=== PATIENT | male | born 1965 | race Caucasian/White ===

== ENCOUNTER 2022-06-09 11:58 | Observation (INO) | payer BC ==
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
[2022-06-09 12:25] LABS: Absolute Lymphocytes (CBC) 0.7 K/uL (0.7-4.9); Hematocrit 39.2 % (39.6-49.0); Lymphocytes % 13.1 % (15.3-44.8); MPV 7.1 fL (7.6-11.3)
[2022-06-09] MEDS ORDERED: MIDAZOLAM HCL 2 MG/2 ML INJ ONE (12:28)
--- NOTE | 2022-06-09 12:41 | RAD REPORT ---
EXAM DESCRIPTION: CT - Head Brain Wo Cont - 06/09/2022 12:28 pm CLINICAL HISTORY: Seizure COMPARISON: None. TECHNIQUE: Computed axial tomography of the head was obtained. IV contrast was not requested. All CT scans are performed using dose optimization technique as appropriate and may include automated exposure control or mA/KV adjustment according to patient size. FINDINGS: An intracranial bleed is not seen . The ventricles are normal in caliber. No significant hypodense areas within the brain visualized No extra-axial fluid collection is noted. Fluid within the sinuses/ mastoids is not seen. IMPRESSION: No acute intracranial abnormality is seen. If patient's symptoms persist MRI of the bra in would be recommended.
[2022-06-09 13:06] LABS: Urine Blood Trace-intact (Negative); Urine Glucose Negative (Negative); Urine Protein 1+ (Negative); Urine Specific Gravity 1.025 (1.005-1.030)
[2022-06-09 13:08] LABS: ALT/SGPT 51 U/L (12-78); AST/SGOT 90 U/L (15-37); Albumin 3.4 g/dL (3.4-5.0); Alkaline Phosphatase 75 U/L (45-117); BUN Blood Urea Nitrogen 4 mg/dL (7-18); Bicarbonate 18 mmol/L (21-32); Bilirubin Total 0.3 mg/dL (0.2-1.0); Glomerular Filtration Rate 97 ml/min (=/>90); Glucose Level 123 mg/dL (74-106); Potassium 3.8 mmol/L (3.5-5.1); Protein, Total 6.9 g/dL (6.4-8.2); Sodium Level 137 mmol/L (136-145)
[2022-06-09 13:10] LABS: Protime INR 1.04
[2022-06-09 13:22] LABS: Barbiturates NEGATIVE (NEGATIVE); Benzodiazepines POSITIVE (NEGATIVE); Cocaine NEGATIVE (NEGATIVE); METHAMPHETAM NEGATIVE (NEGATIVE); Methadone NEGATIVE (NEGATIVE); Opiates NEGATIVE (NEGATIVE); Phencyclidine NEGATIVE (NEGATIVE); THC Cannibis NEGATIVE (NEGATIVE)
[2022-06-09 13:48] LABS: Phenytoin (Dilantin) Level 1.1 ug/mL (10.0-20.0)
[2022-06-09 13:49] LABS: Bilirubin Direct < 0.1 mg/dL (0-0.2)
[2022-06-09] MEDS ORDERED: FOSPHENYTOIN PE 500 MG/10 ML VIAL ONE ×2 (14:17→14:18)
[2022-06-09] MEDS ORDERED: NA CHLORIDE 0.9% 0 ML ONE (14:18)
[2022-06-09] MEDS ORDERED: NA CHLORIDE 0.9% 100 ML ONE ×2 (14:19→23:16)
--- NOTE | 2022-06-09 14:19 | ER ---
Nurse's Notes [facility] Name: Devin Arreguin Age: 56 yrs Sex: Male : 1965 Arrival Date: 06/09/2022 Time: 12:01 Bed 14 Private MD: Diagnosis: Alcohol dependence with withdrawal;Other seizures Presentation: 06/09 11:50 Chief complaint: EMS states: Seizure in the back of his truck, Hx of seizures, takes jg9 medication daily, postictal when EMS arrived, seizure was unwitnessed. patient reports he can't remember when the last seizure he had was, patient reports daily drinker (beer) last drink yesterday, patient has obvious shaking/tremors-patient reports that it's normal after a seizure but does seem worse this time. EMS gave 1 L fluid en route. Coronavirus screen: Vaccine status: Patient reports receiving the 2nd dose of the covid vaccine. Ebola Screen: Patient negative for fever greater than or equal to 101.5 degrees Fahrenheit, and additional compatible Ebola Virus Disease symptoms Patient denies exposure to infectious person. Patient denies travel to an Ebola-affected area in the 21 days before illness onset. Initial Sepsis Screen: Does the patient meet any 2 criteria? HR > 90 bpm. Yes No. Patient's initial sepsis screen is negative. Does the patient have a suspected source of infection? No. Patient's initial sepsis screen is negative. Risk Assessment: Do you want to hurt yourself or someone else? Patient reports no desire to harm self or others. Onset of symptoms is unknown. 11:50 Method Of Arrival: EMS: [facility] jg9 11:50 Acuity: CAN 3 jg9 Triage Assessment: 11:50 General: Appears in no apparent distress. Behavior is calm, cooperative. Pain: Denies jg9 pain. Neuro: Reports Seizure activity reported prior to arrival. 12:10 Neuro: [place] Agitation-Sedation Scale (RASS): 0 - Alert and Calm Level of jg9 Consciousness is awake, alert, obeys commands, Oriented to person, place, time, situation. Cardiovascular: Rhythm is sinus tachycardia. Respiratory: No deficits noted. GI: No deficits noted. : No deficits noted. Derm: No deficits noted. Musculoskeletal: tremors. Historical: - Allergies: 12:08 No Known Allergies; jg9 - PMHx: 12:08 Seizure; Atrial fibrillation; Hypertensive disorder; jg9 - Immunization history:: Adult Immunizations Client reports receiving the 2nd dose of the Covid vaccine, Pneumococcal vaccine is not up to date, Flu vaccine is not up to date. - Social history:: Smoking status: Patient reports use of chewing tobacco. Patient uses alcohol, on a daily basis. Screenin:10 Abuse screen: Denies threats or abuse. Denies injuries from another. Nutritional jg9 screening: hx etoh abuse. Tuberculosis screening: No symptoms or risk factors identified. Fall Risk None identified. 12:30 Clinical [place] Withdrawal Assessment for Alcohol, revised (CIWA-Ar): jg9 Nausea/Vomitin - No nausea or vomiting Headache: 0 - Not present Paroxysmal Sweats: 1 - Barely perceptible sweating, palms moist Anxiety: 0 - No anxiety, at ease Agitation: 0 - Normal actiivty Tremor: 4 - Moderate when client's hands extended Auditory Disturbances: 0 - Not present Visual Disturbances: 0 - Not present Tactile Disturbances: 0 - None Orientation and Clouding of Sensorium: 0 - Oriented and can do serial additions Total Score: < 10 Very mild withdrawal. Assessment: 13:00 Reassessment: No changes from previously documented assessment. Patient and/or family jg9 updated on plan of care and expected duration. Pain level reassessed. Patient is alert, oriented x 3, equal unlabored respirations, skin warm/dry/pink. 14:00 Reassessment: Patient appears in no apparent distress at this time. Patient and/or jg9 family updated on plan of care and expected duration. Pain level reassessed. Patient is alert, oriented x 3, equal unlabored respirations, skin warm/dry/pink. 14:30 Reassessment: Patient admits to daily drinking of beer, last drink was yesterday. jg9 15:00 Reassessment: Patient appears in no apparent distress at this time. No changes from jg9 previously documented assessment. Patient and/or family updated on plan of care and expected duration. Pain level reassessed. Patient is alert, oriented x 3, equal unlabored respirations, skin warm/dry/pink. Vital Signs: 11:50 BP 175 / 96; Pulse 12; Resp 19 S; Temp 97.6; Pulse Ox 95% on R/A; Weight 97.07 kg; jg9 Height 5 ft. 11 in. (180.34 cm) (R); Pain 0/10; 13:20 BP 160 / 87; Pulse 118; Resp 67 S; Pulse Ox 24% ; Pain 0/10; jg9 13:30 BP 166 / 92; Pulse 120; Resp 22; Pulse Ox 97% ; jg9 14:00 BP 145 / 96; Pulse 121; Resp 22 S; Pulse Ox 95% on R/A; jg9 15:00 BP 177 / 96; Pulse 107; Resp 20 S; Pulse Ox 97% on R/A; jg9 11:50 Body Mass Index 29.85 (97.07 kg, 180.34 cm) jg9 [place] Coma Score: 11:50 Eye Response: spontaneous(4). Verbal Response: oriented(5). Motor Response: obeys jg9 commands(6). Total: 15. ED Course: 12:00 Inserted saline lock: 20 gauge in right antecubital area, using aseptic technique. jg9 Blood collected. 12:01 Patient arrived in ED. ms3 12:01 López Hardwick DO is Attending Physician. ms3 12:02 Isabella Arroyo, RN is Primary Nurse. jg9 12:08 Triage completed. jg9 12:11 Arm band placed on right wrist. jg9 12:11 Seizure precautions initiated. jg9 12:31 CT Head Brain wo Cont In Process Unspecified. EDMS 13:00 No apparent distress. Resting quietly. Awaiting lab results, Awaiting radiology jg9 results. Awaiting disposition. 14:00 No apparent distress. Resting quietly. Awaiting disposition. jg9 14:18 Manoj Abel MD is Hospitalizing Provider. ms3 16:17 No provider procedures requiring assistance completed. jg9 16:18 Patient admitted, IV remains in place. jg9 19:06 Primary Nurse role handed off by Isablela Arroyo, SHELLEY mw2 06/10 08:09 Isabella Arroyo, RN is Primary Nurse. jg9 Administered Medications: 06/09 12:23 Drug: Midazolam 5 mg Route: IVP; Site: left hand; jg9 13:30 Follow up: Response: No adverse reaction; Anxiety decreased; RASS: Alert and Calm (0) jg9 14:16 Drug: Fosphenytoin 1 grams Route: IVPB; Site: left hand; jg9 14:58 Follow up: IV Status: Completed infusion; IV Intake: 100ml jg9 14:51 Drug: Thiamine 100 mg Route: PO; jg9 15:38 Follow up: Response: No adverse reaction jg9 17:40 Drug: Ativan (LORazepam) 2 mg Route: PO; jg9 19:00 Follow up: Response: No adverse reaction; Anxiety decreased jg9 17:40 Drug: traMADol 100 mg Route: PO; jg9 19:00 Follow up: Response: No adverse reaction; Pain is decreased jg9 Medication: 16:18 VIS not applicable for this client. jg9 Intake: 14:58 IV: 100ml; Total: 100ml. jg9 Outcome: 14:19 Decision to Hospitalize by Provider. ms3 16:18 Admitted to ER Hold. Please see [facility] for further documentation. jg9 16:18 Condition: stable 06/10 08:10 Patient left the ED. jg9 Signatures: Dispatcher [employer] EDMS Antonio Ellison [email or web address] López Hardwick DO DO ms3 Isabella Arroyo, RN RN jg9
--- NOTE | 2022-06-09 14:19 | EDPHYS ---
Physician Documentation [facility] Name: Devin Arreguin Age: 56 yrs Sex: Male : 1965 Arrival Date: 06/09/2022 Time: 12:01 Bed 14 Private MD: ED Physician López Hardwick HPI: 06/09 15:58 This 56 yrs old Male presents to ER via EMS with complaints of Seizure. ms3 15:58 The patient presents after having a single isolated seizure, that lasted an unknown ms3 period of time. Character of seizure(s): Loss of consciousness: the patient experienced loss of consciousness, Motor activity: the motor activity is unknown, Incontinence: none. Seizure onset: just prior to arrival. Context: occurred at work. Seizure Hx: Last seizure: The patient's last seizure several years ago. Associated injury: The patient did not suffer any apparent associated injury. EMS care: none. Current symptoms: Currently, the patient is not experiencing any symptoms. 15:58 Patient states he drinks daily and has decreased his alcohol intake. ms3 Historical: - Allergies: 12:08 No Known Allergies; jg9 - PMHx: 12:08 Seizure; Atrial fibrillation; Hypertensive disorder; jg9 - Immunization history:: Adult Immunizations Client reports receiving the 2nd dose of the Covid vaccine, Pneumococcal vaccine is not up to date, Flu vaccine is not up to date. - Social history:: Smoking status: Patient reports use of chewing tobacco. Patient uses alcohol, on a daily basis. ROS: 15:58 Constitutional: Negative for fever, and chills. Eyes: Negative for injury, pain, ms3 redness, and discharge, Neck: Negative for injury, pain, and swelling, Cardiovascular: Negative for chest pain, and palpitations. Respiratory: Negative for shortness of breath, cough, wheezing, and pleuritic chest pain, Abdomen/GI: Negative for abdominal pain, nausea, vomiting, diarrhea, and constipation, MS/Extremity: Negative for injury and deformity, Skin: Negative for injury, rash, and discoloration. 15:58 Neuro: Positive for seizure activity, tremor. 15:58 All other systems are negative. Exam: 12:14 ECG was reviewed by the Attending Physician. ms3 15:58 Constitutional: This is a well developed, well nourished patient who is awake, alert, ms3 and in no acute distress. Head/Face: Normocephalic, atraumatic. Neck: Trachea midline, no cervical lymphadenopathy. Supple, full range of motion without nuchal rigidity, or vertebral point tenderness. No Meningismus. Chest/axilla: Normal chest wall appearance and motion. Nontender with no deformity. Cardiovascular: Regular rate and rhythm with a normal S1 and S2. No gallops, murmurs, or rubs. Normal PMI, no JVD. No pulse deficits. Respiratory: Lungs have equal breath sounds bilaterally, clear to auscultation and percussion. No rales, rhonchi or wheezes noted. No increased work of breathing, no retractions or nasal flaring. Abdomen/GI: Soft, non-tender, with normal bowel sounds. No distension or tympany. No guarding or rebound. No evidence of tenderness throughout. Skin: Warm, dry with normal turgor. Normal color with no rashes, no lesions, and no evidence of cellulitis. MS/ Extremity: Pulses equal, no cyanosis. Neurovascular intact. Full, normal range of motion. Psych: Awake, alert, with orientation to person, place and time. Behavior, mood, and affect are within normal limits. 15:58 Neuro: Orientation: is normal, Mentation: is normal, Memory: is normal, Cranial nerves: grossly normal, Cerebellar function: is grossly normal, Motor: is normal, Abnormal movements: resting tremor, is located in the right arm and left arm. Vital Signs: 11:50 BP 175 / 96; Pulse 12; Resp 19 S; Temp 97.6; Pulse Ox 95% on R/A; Weight 97.07 kg; jg9 Height 5 ft. 11 in. (180.34 cm) (R); Pain 0/10; 13:20 BP 160 / 87; Pulse 118; Resp 67 S; Pulse Ox 24% ; Pain 0/10; jg9 13:30 BP 166 / 92; Pulse 120; Resp 22; Pulse Ox 97% ; jg9 14:00 BP 145 / 96; Pulse 121; Resp 22 S; Pulse Ox 95% on R/A; jg9 15:00 BP 177 / 96; Pulse 107; Resp 20 S; Pulse Ox 97% on R/A; jg9 11:50 Body Mass Index 29.85 (97.07 kg, 180.34 cm) jg9 [place] Coma Score: 11:50 Eye Response: spontaneous(4). Verbal Response: oriented(5). Motor Response: obeys jg9 commands(6). Total: 15. MDM: 12:02 Patient medically screened. ms3 14:19 Data reviewed: vital signs, nurses notes, lab test result(s), EKG, radiologic studies, ms3 and as a result, I will admit patient. Counseling: I had a detailed discussion with the patient and/or guardian regarding: the historical points, exam findings, and any diagnostic results supporting the discharge/admit diagnosis, lab results, radiology results, the need for further work-up and treatment in the hospital. ED course: Case discussed with Dr Abel and he accepts patient.. 15:58 Differential diagnosis: seizure, Alcohol withdrawal vs HTN. ms3 06/09 12:03 Order name: BMP; Complete Time: 13:53 ms3 06/09 12:03 Order name: CBC with Diff; Complete Time: 12:45 ms3 06/09 12:03 Order name: Ethanol; Complete Time: 12:54 ms3 06/09 12:03 Order name: Hepatic Function; Complete Time: 13:53 ms3 06/09 12:03 Order name: Protime (+inr); Complete Time: 13:32 ms3 06/09 12:03 Order name: Ptt, Activated; Complete Time: 13:32 ms3 06/09 12:03 Order name: Urine Drug Screen; Complete Time: 13:32 ms3 06/09 12:03 Order name: Phenytoin (dilantin); Complete Time: 13:53 ms3 06/09 13:07 Order name: Urine Dipstick-Ancillary; Complete Time: 13:32 EDMS 06/09 14:28 Order name: SARS RAPID jg9 06/09 14:31 Order name: Basic Metabolic Panel EDMS 06/09 14:31 Order name: Basic Metabolic Panel EDMS 06/09 14:31 Order name: CBC with Automated Diff EDMS 06/09 14:31 Order name: CBC with Automated Diff EDMS 06/09 12:03 Order name: Seizure Precautions; Complete Time: 12:23 ms3 06/09 12:03 Order name: EKG; Complete Time: 12:13 ms3 06/09 12:03 Order name: EKG - Nurse/Tech; Complete Time: 12:23 ms3 06/09 12:03 Order name: IV Saline Lock; Complete Time: 12:17 ms3 06/09 12:03 Order name: Labs collected and sent; Complete Time: 12:23 ms3 06/09 12:03 Order name: O2 Per Protocol; Complete Time: 12:17 ms3 06/09 12:03 Order name: CT Head Brain wo Cont; Complete Time: 12:45 ms3 06/09 14:27 Order name: CONS Physician Consult EDMS 06/09 14:31 Order name: 60g Consistent Carbohydrate (ADA 1800/2000) EDMS 06/10 03:32 Order name: Magnesium EDMS 06/09 12:03 Order name: Urine Dipstick-Ancillary (obtain specimen); Complete Time: 14:02 ms3 EC:14 Rate is 116 beats/min. Rhythm is regular. Left axis deviation noted. CO interval is ms3 normal. QRS interval is normal. Clinical impression: Sinus tachycardia. Interpreted by me. Reviewed by me. Administered Medications: 12:23 Drug: Midazolam 5 mg Route: IVP; Site: left hand; jg9 13:30 Follow up: Response: No adverse reaction; Anxiety decreased; RASS: Alert and Calm (0) jg9 14:16 Drug: Fosphenytoin 1 grams Route: IVPB; Site: left hand; jg9 14:58 Follow up: IV Status: Completed infusion; IV Intake: 100ml jg9 14:51 Drug: Thiamine 100 mg Route: PO; jg9 15:38 Follow up: Response: No adverse reaction jg9 17:40 Drug: Ativan (LORazepam) 2 mg Route: PO; jg9 19:00 Follow up: Response: No adverse reaction; Anxiety decreased jg9 17:40 Drug: traMADol 100 mg Route: PO; jg9 19:00 Follow up: Response: No adverse reaction; Pain is decreased jg9 Disposition Summary: 06/09/22 14:19 Hospitalization Ordered Hospitalization Status: Inpatient Admission ms3 Provider: Manoj Abel ms3 Condition: Stable ms3 Problem: new ms3 Symptoms: are unchanged ms3 Bed/Room Type: Standard ms3 Location: [facility] ER HOLD(06/09/22 15:48) ms3 Room Assignment: ERHOLD-(06/09/22 15:48) ms3 Diagnosis - Alcohol dependence with withdrawal ms3 - Other seizures ms3 Forms: - Medication Reconciliation Form ms3 - SBAR form ms3 Signatures: Dispatcher [employer] EDLópez Car DO DO ms3 Isabella Arroyo, RN RN jg9 Corrections: (The following items were deleted from the chart) 14:02 12:03 Suicide Screening ([place]) ordered. ms3 jg9 14:03 12:03 O2 Sat Monitoring ordered. ms3 jg9 15:48 14:19 Telemetry/MedSurg (Inpatient) ms3 ms3 15:48 14:19 ms3 ms3
[2022-06-09] MEDS ORDERED: MORPHINE 2 MG/ML SYR IV PRN (14:25)
[2022-06-09] MEDS ORDERED: ONDANSETRON 4 MG/2 ML VIAL IV PRN (14:25)
[2022-06-09] MEDS: NA CHLORIDE 0.9% 1,000 ML IV SCH (15:00)
[2022-06-09 15:24] LABS: SARS-CoV-2 Antigen Rapid Res Negative (Negative)
[2022-06-09] MEDS ORDERED: ONDANSETRON 4 MG/2 ML VIAL ONE (16:01)
[2022-06-09] MEDS ORDERED: NA CHLORIDE 0.9% 1,000 ML ONE ×2 (16:02→16:13)
[2022-06-09] MEDS ORDERED: MORPHINE 2 MG/ML SYR ONE (16:07)
[2022-06-09] MEDS ORDERED: TRAMADOL HCL 50 MG TAB ONE (17:16)
[2022-06-09] MEDS ORDERED: POTASSIUM CL SA 10 MEQ TAB PO ONE (17:16)
[2022-06-09] MEDS ORDERED: LORAZEPAM 1 MG TABLET ONE (17:16)
[2022-06-09 18:02] VITALS: BMI 29.8
[2022-06-09 19:55] VITALS: TEMP 98.6
[2022-06-09] MEDS ORDERED: chlordiazePOXIDE HCl 5 MG CAP PO PRN (21:41)
[2022-06-09] MEDS ORDERED: levETIRAcetam 1,000 MG in NA CHLORIDE 0.9% 100 ML IV ONE (21:42)
[2022-06-09] MEDS ORDERED: LEVETIRACETAM 500 MG/5 ML VIAL IV ONE (23:16)
[2022-06-10] MEDS: ACETAMINOPHEN 500 MG TAB PO PRN ×2 (00:03→06:35)
[2022-06-10] MEDS ORDERED: ACETAMINOPHEN 500 MG TAB ONE ×2 (00:09→06:36)
[2022-06-10] MEDS: NA CHLORIDE 0.9% 1,000 ML IV SCH (01:00)
[2022-06-10] MEDS ORDERED: NA CHLORIDE 0.9% 1,000 ML ONE (02:05)
[2022-06-10 03:11] LABS: Absolute Lymphocytes (CBC) 1.3 K/uL (0.7-4.9); Hematocrit 37.1 % (39.6-49.0); Lymphocytes % 23.7 % (15.3-44.8); MPV 7.7 fL (7.6-11.3); RBC Red Blood Cell Count 4.22 M/uL (4.33-5.43)
[2022-06-10 03:32] LABS: Potassium 3.5 mmol/L (3.5-5.1)
--- NOTE | 2022-06-10 08:15 | EKG ---
Test Date: 2022-06-09 Test Time: 12:14:56 [employer] Architect: DARY MEASUREMENT RESULTS: Intervals: Rate: 116 UT: 154 QRSD: 82 QT: 330 QTc: 458 [place]: P: 30 UT: 154 QRS: -33 T: 17 INTERPRETIVE STATEMENTS: Sinus tachycardia Left axis deviation Abnormal ECG No previous ECG available for comparison Electronically Signed On 06-10-22 08:11:19 CDT by Tom Yi
[2022-06-10 08:27] VITALS: BP 177/96; O2SAT 97
[2022-06-10] MEDS ORDERED: VENLAFAXINE HCL 75 MG TABLET PO SCH (09:00)
[2022-06-10] MEDS ORDERED: FOLIC ACID 1 MG, MULTIVITAMINS INJ 10 ML, THIAMINE HCL 100 MG in NA CHLORIDE 0.9% 1,000 ML IV SCH (09:00)
[2022-06-10] MEDS ORDERED: ALPRAZOLAM 0.25 MG TABLET PO SCH (09:00)
[2022-06-10] MEDS ORDERED: levETIRAcetam 500 MG TAB PO SCH (09:00)
[2022-06-10] MEDS ORDERED: VERAPAMIL HCL 120 MG TAB PO SCH (09:00)
== END 2022-06-10 08:56 | disposition home or self-care (01) ==
LOC: ER 11:58 → INTOOBSV 14:23 → ERHOLD 14:23
PROVIDERS: ADMIT Internal Medicine; ATTEND Internal Medicine
DX: F10.239 Alcohol dependence with withdrawal, unspecified (principal); G40.89 Other seizures; I10 Essential (primary) hypertension; I48.91 Unspecified atrial fibrillation; F17.220 Nicotine dependence, chewing tobacco, uncomplicated; Z20.822 Contact with and (suspected) exposure to COVID-19
CPT/HCPCS: 96365; 93005; 85025 ×2; 80048 ×2; 36415; 80320; 83735; 85610; 80076; 85730; 80185; 81003; 80307; 70450; 96375; 99285; 87811; J2250; Q2009 ×2; J2270; J1953; J7030 ×3; J2405; G0378 ×3; J3411